=== PATIENT | female | born 1940 | race Caucasian/White ===

== ENCOUNTER 2017-11-03 08:17 | Outpatient (CLI) | payer MEDICARE, OTHER ==
--- NOTE | 2017-11-03 11:18 | PET ---
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 Exam requested for initial st aging. Patient had left eye surgery in September 2017. TECHNIQUE: PET scanning with CT attenuation correction was performed from the vertex through the proximal thighs following the intravenous administration of 13.2 mCi F18-FDG in the left hand. Imaging of the body w as performed after an uptake interval of 48 minutes and the head/neck performed after an uptake inter constance of 64 minutes. COMPARISON: None. FINDINGS: No hypermetabolic activity is seen in the orbits on either side. No jeremy hypermetabolism is noted in the neck, mediastinum, hilar regions, left axilla, abdominopelvic, or inguinal lymph nodes. There is a hypermetabolic 1.2 cm right axillary lymph node with a QSUV of 2.5. No hypermetabolic pulmonary nodules, liver, adrenal, or skeletal lesions are seen. There is physiologic activity in the GI and tracts, and the brain. CT scan used for attenuation correction demonstrates no evidence of pleural effusions or ascites. The re are left-sided renal calculi and a 7.0 mm left UPJ calculus with hydronephrosis. There is sigmoid diverticulosis. There is a tiny, 3.0 mm, calculus in the left distal ureter close to the UVJ. IMPRESSION: 1. Hypermetabolic right axillary lymph node is a suspicious finding for viable lymphoma. 2. Obstructing 7.0 mm left UPJ calculus, left renal calculi, and a 3.0 mm left distal ureteric calcu tia. POS: [facility]
== END 2017-11-03 08:18 | disposition home or self-care (01) ==
LOC: PET 08:17
PROVIDERS: ATTEND Radiology Radiation Oncology
DX: C82.19 Follicular lymphoma grade II, extranodal and solid organ sites (principal); N20.2 Calculus of kidney with calculus of ureter
CPT/HCPCS: 78815; A9552

== ENCOUNTER → 2017-11-28 | Day surgery (SDC) | payer MEDICARE, OTHER ==
[~2017-11-28] MED LIST: Lidocaine 1% PF 5 ML VIAL ONE; Sodium Bicarbonate 2.5 MEQ/5 ML VIAL ONE
--- NOTE | 2017-11-28 12:05 | ULT ---
SOFT TISSUE ULTRASOUND RIGHT AXILLARY ULTRASOUND: CLINICAL HISTORY: Hypermetabolic node of right axilla on preceding PET scan. History of left orbital follicular lympho ma. FINDINGS: There is an abnormal hypoechoic somewhat spiculated soft tissue mass of the right axillary region wit h scant internal flow by Doppler assessment. The mass measures approximately 11 mm in maximum diamet er. This does correspond to the region of hypermetabolic node on preceding PETCT. The patient is sc heduled for subsequent ultrasound-guided biopsy. IMPRESSION: Hypoechoic, spiculated mass of the right axilla. POS: [facility]
--- NOTE | 2017-11-28 12:11 | ULT ---
ULTRASOUND GUIDED BIPSY OF RIGHT AXILLARY NODE: CLINICAL HISTORY: Follicular lymphoma. Hypermetabolic node of the right axilla demonstrated on preceding CT exam. The patient presents at the request of ordering physician, Dr. Kaden Gonzales, for biopsy of the hyperme tabolic right axillary node. PROCEDURE: Informed consent was obtained. The patient was escorted to the procedural suite and placed in the [place] position. The right axillary node of interest was demonstrated on sonographic imaging. The rig ht axilla was then prepped and draped in a standard sterile fashion. Topical anesthesia with buffere d 1% Lidocaine was achieved. A small skin incision was made through which an 18-gauge biopsy needle was advanced to the leading edge of the right axillary node of interest. Subsequently, 3 separate co re specimens were acquired. These were submitted to the pathologist attending the case, Dr. Bar Eddy, who deemed the specimen adequate for interpretation, stating lymph cells were present. The ex am was subsequently terminated. All devices were removed from the patient. The patient tolerated th e procedure well without evidence of complication. The patient was discharged in stable condition. IMPRESSION: Technically successful-guided biopsy of the right axillary lymph node. POS: [facility]
== END ==
LOC: ULT 09:40
PROVIDERS: ATTEND Radiology Radiation Oncology
PROC: 07B53ZX Excision of Right Axillary Lymphatic, Percutaneous Approach, Diagnostic (ICD-10-PCS; principal; 2017-11-28)
DX: C82.19 Follicular lymphoma grade II, extranodal and solid organ sites (principal); E03.9 Hypothyroidism, unspecified; I10 Essential (primary) hypertension; E78.00 Pure hypercholesterolemia, unspecified; G43.909 Migraine, unspecified, not intractable, without status migrainosus; Z79.899 Other long term (current) drug therapy
CPT/HCPCS: 38505; 76999; 88184; 88305; 88333; 88334; 88341; 88342; J2001

== ENCOUNTER 2018-06-18 09:49 | Outpatient (CLI) | payer MEDICARE, OTHER ==
--- NOTE | 2018-06-18 15:11 | PET ---
RADIONUCLIDE PET SCAN WITH CT ATTENUATION CORRECTION: Date: 06/18/18 HISTORY: C82.18. Lymphoma. Restaging. COMPARISON: 11/03/17. FINDINGS: Physiologic uptake of radiotracer is present throughout the enteric system and along each urinary tra ct. At the right axilla, the previously hypermetabolic lymph node is no longer enlarged and shows no hype rmetabolic activity. No new abnormal areas of radiotracer uptake are apparent. The nondiagnostic CT attenuation correction images again show left renal calculi, left hydronephrosis , and a calcification at the left ureteropelvic junction. IMPRESSION: 1. Interval resolution of the right axillar lymph node abnormality. No hypermetabolic activity. No n ew abnormalities. 2. Left renal calculi and partially obstructing left UPJ calcification are unchanged in appearance. POS: [facility]
== END 2018-06-18 09:50 | disposition home or self-care (01) ==
LOC: PET 09:49
PROVIDERS: ATTEND Radiology Radiation Oncology
DX: C82.18 Follicular lymphoma grade II, lymph nodes of multiple sites (principal); N20.0 Calculus of kidney; N28.89 Other specified disorders of kidney and ureter
CPT/HCPCS: 78815; A9552

== ENCOUNTER 2019-08-09 07:25 | Outpatient (CLI) | payer MEDICARE, OTHER ==
[2019-08-09 12:32] LABS: #Eosinphils 0.3 thou/uL (0.0-0.7); #Lymphocytes 1.9 thou/uL (1.20-3.40); #Monocytes 0.9 thou/uL (0.11-0.59); #Neutrophils 4.2 thou/uL (1.40-6.50); %Basophils 0.5 % (0.0-1.0); %Eosinophils 3.6 % (0.0-10.0); %Lymphocytes 26.3 % (21.0-51.0); %Monocytes 12.2 % (0.0-10.0); %Neutrophils 57.5 % (42.0-75.0); Hemoglobin 13.1 g/dL (12.0-16.0); Mean Corpuscular HGB CONC 33.7 g/dL (32.0-36.0); Mean Corpuscular Hemoglobin 29.6 pg (27.0-31.0); Mean Corpuscular Volume 87.9 fL (78.0-98.0); Mean Platelet Volume 9.5 fL (7.4-10.4); Platelet Count 160 thou/uL (130-400); RBC Distribution Width 13.5 % (11.5-14.5); Red Blood Cell (RBC) Count 4.44 mill/uL (4.20-5.40); White Blood Cell (WBC) Count 7.4 thou/uL (4.8-10.8)
[2019-08-09 12:51] LABS: Anion Gap 12 mmol/L (10-20); BUN (Urea Nitrogen) 38 mg/dL (9.8-20.1); Calc. Creatinine Clearance 0 mL/min (70-130); Calcium 10.2 mg/dL (7.8-10.44); Carbon Dioxide 25 mmol/L (23-31); Chloride 106 mmol/L (98-107); Estimated GFR-MDRD 68; Glucose 98 mg/dL (83-110); Potassium 4.3 mmol/L (3.5-5.1); Sodium 139 mmol/L (136-145)
--- NOTE | 2019-08-09 13:14 | RAD ---
TWO VIEW CHEST: HISTORY: Preop. FINDINGS: Lungs appear clear of infiltrate. Heart size upper normal. Vasculature normal. Osseous structures unremarkable. IMPRESSION: No acute finding. POS: [facility]
== END 2019-08-09 07:26 | disposition home or self-care (01) ==
LOC: LABBT 07:25
PROVIDERS: ATTEND Specialist
DX: Z01.818 Encounter for other preprocedural examination (principal); C50.919 Malignant neoplasm of unspecified site of unspecified female breast
CPT/HCPCS: 71046; 80048; 85025; 93005; 93010

== ENCOUNTER 2019-08-12 07:13 | Day surgery (SDC) | payer MEDICARE, OTHER ==
[2019-08-09 11:40] VITALS: BMI 27.0
[2019-08-12] MEDS ORDERED: Fentanyl 100 MCG/2 ML VIAL ONE (10:43)
[2019-08-12] MEDS ORDERED: Ketorolac Tromethamine 30 MG/ML VIAL ONE ×2 (10:48→11:07)
[2019-08-12] MEDS ORDERED: Lidocaine 1% w/Epinephrine 1:100K 20 ML VIAL ONE (10:51)
[2019-08-12] MEDS ORDERED: Bupivacaine 0.25% HCL 30 ML VIAL ONE (10:51)
[2019-08-12] MEDS ORDERED: Isosulfan Blue 50 MG/5 ML VIAL ONE (10:51)
--- NOTE | 2019-08-12 10:56 | NM ---
EXAM: NM Lymphoscintigraphy PROVIDED CLINICAL HISTORY: Left breast cancer. Lymphoscintigraphy was requested prior to left breast lumpectomy. COMPARISON: Left breast ultrasound and mammogram on 07/15/2019 FINDINGS: 402 uCi technetium 99m sulfur colloid was administered intradermally and subcutaneously in 4 separate aliquots in a left periareolar location. After 2 hours of imaging, no focal abnormal area of increased uptake of radiotracer is seen within the left axilla to correspond to a sentinel lymph node . There is a subtle focus of suggested increased uptake noted in the left axillary region on 1 hour image, but this does not increase in intensity on the 2 hour image and is less well-visualized on the [address] Conroy requested that the patient be transported to the operating room for surgery at this time, and no additional imaging was performed. IMPRESSION: No definitive increased uptake of radiotracer is seen to suggest evidence of a sentinel lymph node ba sed on provided images. Dr. Conroy requested that the patient be transported to the operating room, and no additional imagin g was performed.
[2019-08-12] MEDS ORDERED: Glycopyrrolate 0.2 MG/ML 5 ML SYRINGE ONE (11:07)
[2019-08-12] MEDS ORDERED: Lidocaine 1% PF 5 ML VIAL ONE (11:07)
[2019-08-12] MEDS ORDERED: Succinylcholine Chloride 20 MG/ML 10 ml SYRINGE FS ONE (11:07)
[2019-08-12] MEDS ORDERED: Ondansetron PF 4 MG/2 ML Vial ONE (11:07)
[2019-08-12] MEDS ORDERED: Dexamethasone 20 MG/5 ML VIAL ONE (11:07)
[2019-08-12] MEDS ORDERED: PROPOFOL 200 MG/20 ML VIAL ONE (11:07)
[2019-08-12] MEDS ORDERED: EPHEDRINE 25 MG/5 ML SYRINGE ONE (11:07)
--- NOTE | 2019-08-12 21:32 | OP ---
DATE OF PROCEDURE: 08/12/2019 PREOPERATIVE DIAGNOSIS: Left breast invasive lobular carcinoma. POSTOPERATIVE DIAGNOSIS: Left breast invasive lobular carcinoma. PROCEDURES PERFORMED: Ultrasound-guided needle localization, left breast lumpectomy, and left axillary sentinel lymph node biopsy. ANESTHESIA: General endotracheal. INDICATIONS: The patient is an 79-year-old white female. She is diagnosed with a 2 cm invasive lobular carcinoma of the upper outer quadrant of the left breast. She is taken to the operating room at this time for lumpectomy and sentinel lymph node biopsy. Preoperative lymphoscintigraphy was performed, which revealed no definite sentinel lymph node within the axilla. DESCRIPTION OF OPERATION: Informed consent was obtained, the patient was taken to the operating room, where general endotracheal anesthesia was obtained with the patient in supine position. I infiltrated 3 mL of Lymphazurin in the subdermal periareolar tissue of the left breast and massaged the breast for about 5 minutes. The breast was then prepped with ChloraPrep and draped in sterile fashion. The location of the malignancy was mapped in the upper outer quadrant of the left breast in a grid fashion on the skin using ultrasound guidance. I then passed a localizing needle in a [id number] fashion through the malignancy. Attention was then turned to the axilla. A transverse low axillary incision was created and dissection was carried through skin and subcutaneous tissue and through the superficial axillary fascia. Neoprobe was utilized to identify areas of maximum radio intensity. I identified two specific areas of radio intensity. These were relatively mild compared to typical radioactive lymph nodes; however, there were substantially higher than surrounding tissue. The first of these was what appeared to be a dominant sentinel node as it contained blue dye as well. The three sentinel lymph nodes were each identified, dissected circumferentially, and removed after ligating all investing lymphatics with 3-0 silk ties. These were submitted to Pathology for permanent evaluation. Meticulous hemostasis was obtained within the axilla. The wound was then closed in layers with 3-0 and 4-0 Monocryl. Attention was then turned to the left breast. A transverse incision was created based on the localizing needle entry site. Dissection was carried through skin and subcutaneous tissue. Flaps were raised superiorly and inferiorly. I then dissected behind the localizing needle down to the pectoral fascia and dissected the lesion off the pectoral fascia in a [id number] fashion. Care was taken to try to maintain appropriate margins during the removal. The specimen was removed intact. I assessed the specimen with a specimen sonography, it appeared that the anterior margin might be close. I therefore obtained a separate anterior margin. The tissue in this area was relatively friable. It was hard to orient the margin in a standard fashion. I therefore submitted this without orientation, suspecting that this would be a negative margin. The initially resected specimen was tagged with suture for orientation and submitted to Pathology. A specimen mammography was also obtained on the lesion demonstrating a clip within the lesion. The wound was then closed in layers with 3-0 and 4-0 Monocryl. Additional local anesthetic was infiltrated during the course of closure. Dermabond was placed externally over both incisions. There were no complications. The patient tolerated the procedure well and was taken to recovery room in stable condition. Job ID: [id number]
== END 2019-08-12 15:15 | disposition home or self-care (01) ==
LOC: SDC 07:13
PROVIDERS: ATTEND Specialist
PROC: 0HBU0ZZ Excision of Left Breast, Open Approach (ICD-10-PCS; principal; 2019-08-12)
PROC: 07B60ZX Excision of Left Axillary Lymphatic, Open Approach, Diagnostic (ICD-10-PCS; 2019-08-12)
DX: C50.812 Malignant neoplasm of overlapping sites of left female breast (principal); C77.3 Secondary and unspecified malignant neoplasm of axilla and upper limb lymph nodes; I10 Essential (primary) hypertension; E78.00 Pure hypercholesterolemia, unspecified; Z17.0 Estrogen receptor positive status [ER+]; Z79.82 Long term (current) use of aspirin; Z79.899 Other long term (current) drug therapy
CPT/HCPCS: 19301; 38525; 38900; 76098; 78195; A9541; Q9968; 88305; 88307; 88342; J0690; J1100; J1885; J2001; J2405; J2704; J3010; S0020

== ENCOUNTER 2020-03-20 19:05 | Inpatient (IN) | payer MEDICARE, OTHER ==
[2020-03-20] MEDS ORDERED: Atropine Sulfate 1 mg/10 ml Syringe ONE ×2 (19:56→20:27)
[2020-03-20 20:19] LABS: #Eosinphils 0.3 thou/uL (0.0-0.7); #Lymphocytes 1.7 thou/uL (1.20-3.40); #Monocytes 0.9 thou/uL (0.11-0.59); #Neutrophils 4.5 thou/uL (1.40-6.50); %Basophils 0.6 % (0.0-1.0); %Eosinophils 3.7 % (0.0-10.0); %Monocytes 12.2 % (0.0-10.0); %Neutrophils 60.5 % (42.0-75.0); Hemoglobin 12.6 g/dL (12.0-16.0); Mean Corpuscular HGB CONC 34.3 g/dL (32.0-36.0); Mean Corpuscular Hemoglobin 30.8 pg (27.0-31.0); Mean Corpuscular Volume 89.9 fL (78.0-98.0); Mean Platelet Volume 8.7 fL (7.4-10.4); Platelet Count 167 thou/uL (130-400); RBC Distribution Width 13.4 % (11.5-14.5); Red Blood Cell (RBC) Count 4.09 mill/uL (4.20-5.40); White Blood Cell (WBC) Count 7.4 thou/uL (4.8-10.8)
--- NOTE | 2020-03-20 20:19 | RAD ---
Chest one view HISTORY: Dyspnea. COMPARISON: 08/09/2019. FINDINGS: Cardiac silhouette is magnified by projection. Pulmonary vasculature is unremarkable. Mediastinum is midline with aortic calcification. No lobar consolidation or evidence of pneumothorax. Old healed right second rib lateral fracture. Postoperative changes right shoulder. Calcific tendinos is left shoulder. IMPRESSION : No active cardiopulmonary abnormalities are demonstrated.
[2020-03-20 21:01] LABS: ALT (SGPT) 194 U/L (8-55); AST (SGOT) 105 U/L (5-34); Albumin 4.1 g/dL (3.4-4.8); Alkaline Phosphatase 110 U/L (40-110); Anion Gap 17 mmol/L (10-20); BUN (Urea Nitrogen) 50 mg/dL (9.8-20.1); Bilirubin, Total 0.3 mg/dL (0.2-1.2); Calc. Creatinine Clearance 0 mL/min (70-130); Calcium 10.2 mg/dL (7.8-10.44); Carbon Dioxide 23 mmol/L (23-31); Chloride 103 mmol/L (98-107); Estimated GFR-MDRD 39; Globulin 2.9 g/dL (2.4-3.5); Glucose 114 mg/dL (83-110); Potassium 4.9 mmol/L (3.5-5.1); Sodium 138 mmol/L (136-145)
[2020-03-20] MEDS ORDERED: DOPamine 400 MG/D5W 250 ML 0 ML ONE (21:20)
[2020-03-20] MEDS ORDERED: DOBUTamine 500 mg/250 ml 250 ML ONE (21:23)
[2020-03-20 23:52] LABS: Troponin I 0.014 ng/mL (< 0.028)
[2020-03-21] MEDS ORDERED: DOPamine 400 MG/D5W 250 ML 250 ML ONE (01:21)
[2020-03-21] MEDS ORDERED: Sodium Chloride 0.9% 1,000 ML IV SCH (01:45)
--- NOTE | 2020-03-21 02:05 | CON ---
DATE OF CONSULTATION: INDICATION FOR ADMISSION: An 80-year-old female with symptomatic bradycardia. HISTORY OF PRESENT ILLNESS: This is a very pleasant 80-year-old female, who has been followed by Dr. Munoz in the past. She had been having some problems with not feeling well, fatigue, and shortness of breath. She had a monitor placed recently in the office and was to present within the next week or two with results of the monitor. She presented to the emergency room today after she became more short of breath and lightheaded. She said she was unable to even walk her dog. She could not walk across the parking lot without being severely fatigued. She had some dizziness. She has not had any syncopal episodes. On arrival in the emergency room, the patient was noted to have a junctional heart rate with a heart rate in the 30s. Since being in the emergency room, her heart rate has fluctuated as much as 50s to 60s. She was placed on dobutamine instead of dopamine. The emergency room called me earlier and I suggest she be placed on dopamine to see if we could increase the heart rate. This medicine will now be changed over from dobutamine to dopamine. Otherwise, she has had no chest pain. She denies any previous cardiac history except for the not feeling well. No shortness of breath. PAST MEDICAL HISTORY: Significant for left knee surgery for meniscus tear. She has had a left eye lymphoma removal. She has had history of fibroids and had a hysterectomy. She has had breast cancer with a lumpectomy in August 2019, bilateral cataract surgery, history of nephrolithiasis. SOCIAL HISTORY: She is a . She has 2 children. No heart disease. She has no tobacco abuse. She has occasional margaritas. She is retired. She does volunteering. MEDICATIONS: Prior to admission included: 1. Atenolol 50 mg a day. 2. Levothyroxine 25 mcg a day. 3. Lisinopril 20 mg a day. 4. Lipitor 10 mg a day. 5. Imitrex p.r.n. as needed. 6. Anastrozole 1 mg daily. 7. Multivitamins. 8. Calcium. 9. Turmeric. 10. Vitamin C and vitamin D3. 11. . FAMILY HISTORY: She had 5 uncles with coronary artery disease. ALLERGIES: NONE. REVIEW OF SYSTEMS: A 12-point review of systems is unremarkable except what is noted in the history of present illness. PHYSICAL EXAMINATION: VITAL SIGNS: Heart rates in 30s to 50s. Blood pressure is 89/37. HEENT: Shows the head to be normocephalic and atraumatic. NECK: Carotid pulses are present. There were no bruits. CHEST: Clear to auscultation without rales, rhonchi, or wheezing. CARDIOVASCULAR: Reveals an irregular rhythm at this time. She is bradycardic. There were no gross murmurs noted. ABDOMEN: Soft and nontender. Positive bowel sounds are present. EXTREMITIES: Show no clubbing, cyanosis, or edema. Pedal pulses are present but somewhat difficult to palpate. NEUROLOGICAL: She appears to be actually fully intact at this time. She mainly complains of being fatigued as well as some shortness of breath when she tries to do any activity, but otherwise seems to be doing quite well. EKG shows a junctional rhythm with a heart rate in the 30s. IMPRESSION: Symptomatic bradycardia with junctional rhythm in the 30s. She has been on atenolol, but this would not be enough to cause this degree of bradycardia. We will hold the beta blockers at this time. We will continue on her other medications. We will start on dopamine to increase the heart rate and will advise her to undergo pacemaker insertion. I have already spoken to her about this. I have explained the procedure and the risks to include bleeding, infection, possible pneumothorax, hemothorax, pericardial tamponade. She understands and agrees to proceed with pacemaker insertion, which we plan for 7 o'clock tomorrow morning unless she becomes urgent later tonight. At this time, she is relatively stable and has minimal symptoms unless she moves about. Job ID: [id number]
[2020-03-21 02:25] LABS: #Eosinphils 0.1 thou/uL (0.0-0.7); #Lymphocytes 1.2 thou/uL (1.20-3.40); #Monocytes 0.7 thou/uL (0.11-0.59); #Neutrophils 5.1 thou/uL (1.40-6.50); %Basophils 0.5 % (0.0-1.0); %Eosinophils 1.4 % (0.0-10.0); %Lymphocytes 17.2 % (21.0-51.0); %Monocytes 9.1 % (0.0-10.0); %Neutrophils 71.8 % (42.0-75.0); Hemoglobin 12.7 g/dL (12.0-16.0); Mean Corpuscular HGB CONC 33.6 g/dL (32.0-36.0); Mean Corpuscular Volume 89.4 fL (78.0-98.0); Mean Platelet Volume 8.5 fL (7.4-10.4); Platelet Count 148 thou/uL (130-400); RBC Distribution Width 13.4 % (11.5-14.5); Red Blood Cell (RBC) Count 4.22 mill/uL (4.20-5.40); White Blood Cell (WBC) Count 7.1 thou/uL (4.8-10.8)
[2020-03-21] MEDS ORDERED: DOPamine 400 MG/D5W 250 ML 250 ML IVPB SCH ×2 (02:30→02:45)
[2020-03-21 02:45] VITALS: BMI 28.3
[2020-03-21 03:06] LABS: ALT (SGPT) 172 U/L (8-55); AST (SGOT) 67 U/L (5-34); Albumin 3.9 g/dL (3.4-4.8); Alkaline Phosphatase 102 U/L (40-110); Anion Gap 16 mmol/L (10-20); BUN (Urea Nitrogen) 49 mg/dL (9.8-20.1); Bilirubin, Total 0.3 mg/dL (0.2-1.2); Calc. Creatinine Clearance 38 mL/min (70-130); Calcium 10.1 mg/dL (7.8-10.44); Carbon Dioxide 24 mmol/L (23-31); Chloride 103 mmol/L (98-107); Estimated GFR-MDRD 42; Globulin 3.1 g/dL (2.4-3.5); Glucose 121 mg/dL (83-110); Potassium 4.6 mmol/L (3.5-5.1); Sodium 138 mmol/L (136-145)
[2020-03-21 03:52] LABS: Troponin I 0.012 ng/mL (< 0.028)
--- NOTE | 2020-03-21 05:21 | HP ---
REASON FOR ADMISSION: Dizziness and shortness of breath. HISTORY OF PRESENT ILLNESS: This is an 80-year-old female patient, who is presenting with shortness of breath. History going back to two days before her presentation. She has been short of breath on moderate exertion. While walking, she became short of breath also, has been feeling lightheaded for the past month that can occur while sitting, not affected by standing up. She presented today. She felt that since she is consistently short of breath, she PAST MEDICAL HISTORY: 1. Breast cancer, status post lumpectomy, status post radiation therapy. 2. High blood pressure. 3. High cholesterol. SOCIAL HISTORY: She does not smoke, does not drink alcohol. FAMILY HISTORY: Positive for heart disease. REVIEW OF SYSTEMS: All systems reviewed except the above mentioned, found to be negative. PHYSICAL EXAMINATION: GENERAL: She is awake, alert, oriented, does not appear in distress. VITAL SIGNS: Her blood pressure is 130/43, heart rate of 72, saturating 98% on room air. HEENT: Head is nontraumatic, normocephalic. Pupils equal, reactive. Extraocular movements are intact. Nonicteric sclerae. Well-injected conjunctivae. Oral mucosa normal. Nasal mucosa normal. NECK: Supple. No adenopathy. No murmur. Thyroid is not palpable. Trachea is midline. No supraclavicular adenopathy. HEART: S1, S2 regular. No murmur. No gallops. No friction rubs noted. No displacement of PMI. LUNGS: Clear to auscultation bilaterally. No wheezes or rhonchi. No crackles. ABDOMEN: Bowel sounds are positive. Nontender abdomen. No hepatosplenomegaly. EXTREMITIES: No lower extremity edema. No cyanosis. NEURO EXAM: Cranial nerves II through XII within normal limits. Normal motor function. Normal sensory function. Normal reflexes. LABORATORY DATA: Blood work shows WBC of 7.4, hemoglobin 12.6, platelets of 167. Sodium 138, potassium 4.9, bicarb 23, BUN 50, creatinine 1.3, previous creatinine 0.81, AST 105, ALT 194. Troponin 0.01, repeat 0.014. EKG showed initially a junctional rhythm. ASSESSMENT AND PLAN: This is an 80-year-old female patient who has been having exertional dyspnea for the past two days, but has been lightheaded for the past couple of months. Upon her arrival to the ER, she was found to have a junctional rhythm at a heart rate of 32 beats per minute. She did receive atropine, then was started on dobutamine drip. The ER nurse practitioner did call Dr. Parra, who recommended admission to [facility] on dobutamine drip. She will see the patient in the morning for possible pacemaker placement. Cardiac: The patient will be admitted to [facility]. She will be on IV dobutamine drip. We will continue cycling cardiac enzymes. The patient is on atenolol. This medication will be stopped. We will follow Cardiology recommendation in regards of the need for a pacemaker. For deep vein thrombosis prophylaxis: She will be on heparin subcutaneously and sequential compression devices. Renal system, electrolytes: The patient does appear to have a worsening of her creatinine. She will be on gentle IV fluid hydration. Recheck her labs in the morning. The patient does have slightly increased LFTs. We will recheck them in the morning. I did discuss with her the code status. She wishes to be full code. Job ID: [id number]
[2020-03-21] MEDS ORDERED: Gentamicin 80 MG/2 ML VIAL ONE (06:38)
[2020-03-21] MEDS ORDERED: CEFAZOLIN 1 GM VIAL ONE (06:38)
[2020-03-21] MEDS ORDERED: Heparin 0 ML ONE (06:38)
[2020-03-21] MEDS ORDERED: Midazolam HCl 2 mg/2 ml Vial ONE (07:08)
[2020-03-21] MEDS ORDERED: Heparin 5,000 UNITS/ML VIAL SC SCH (09:00)
[2020-03-21] MEDS ORDERED: HYDROcodone/Acetaminophen 5/325 mg Tablet PO PRN (09:36)
--- NOTE | 2020-03-21 10:58 | RAD ---
PORTABLE CHEST 1 VIEW: Date: 03/21/2020 Time: 0948 hours HISTORY: Post cardiac device placement. FINDINGS/IMPRESSION: There has been interval placement of a left-sided pacemaker device with leads in the right atrium and the right ventricle since the previous day's exam. No pneumothoraces are seen. Remainder of exam is otherwise stable. POS: [facility]
[2020-03-21 14:26] LABS: SARS-CoV-2 MS2 Positive; SARS-CoV-2 N Gene Negative; SARS-CoV-2 S Gene Negative; SARS-CoV-2 by NAA Not Detected (NotDetected); SARS-CoV-2 orf1ab Negative
[2020-03-21 15:13] VITALS: TEMP 97
[2020-03-21 15:17] VITALS: BP 133/72
--- NOTE | 2020-03-21 19:04 | PDOC.DS.DS ---
Provider - Provider Date of Admission: 03/20/20 21:58 Date of Discharge: 03/21/20 Admitting Provider: Esteban Last MD Consultations: Cardiology Primary Care Physician: Bar Conroy MD Course - Hospital Course Hospital Course: Brief HPI: This is an 80-year-old female who presented to the emergency room with shortness of breath for the past 2 days. She also reported feeling lightheaded especially while sitting. Upon arrival to the emergency room she was found to have a junctional rhythm with a heart rate of 32. She received atropine and was started on a dobutamine drip. She was admitted to the [facility] with cardiology consultation. Patient states that she had been taking atenolol for years for high blood pressure. She denied any history of atrial fibrillation. HOSPITAL COURSE: Junctional bradycardia: Patient was started on a dopamine drip and admitted to the [facility]. She underwent pacemaker placement on 03/21. After her pacemaker insertion she was taken off all drips. Her heart rate was 72. She denied any chest pain, palpitations, dizziness or lightheadedness. She was discharged with cefdinir for 1 week to prevent pacemaker infection. She will follow up with Dr. Parra in 7 to 10 days and then follow-up with Dr. Asher in 3 to 4 weeks. Her atenolol was discontinued on discharge. Acute Kidney Injury: Patient's creatinine was 1.32 which improved to 1.23 with IV fluids. The patient denied any nausea or vomiting. She expressed interest in going home. She was advised to discontinue her lisinopril and get a repeat BMP in a week. Hypertension: Patient was taking atenolol and lisinopril at home. These were discontinued and she was switched to amlodipine 5 mg daily which she can take as needed for blood pressures greater than 140. Pertinent Studies: Chest x ray 03/20: normal Chest X ray 03/21: normal Procedures: Pacemaker insertion Resuscitation Status: 03/21/20 01:27 Resuscitation Status Routine Resuscitation Status: FULL: Full Resuscitation - Labs Lab Results: 03/21/20 02:17 03/21/20 02:17 Abnormal Lab Results - Last 48 hrs 03/20/20 20:03: BUN 50 H, Creatinine 1.31 H, AST 105 H, ALT 194 H 03/20/20 20:03: RBC 4.09 L, Monocytes % 12.2 H, Monocytes # 0.9 H 03/21/20 02:17: BUN 49 H, Creatinine 1.23 H, AST 67 H, ALT 172 H 03/21/20 02:17: Lymphocytes % 17.2 L, Monocytes # 0.7 H - Physical Exam Vitals: Vital Signs (12 hours) Temp Pulse BP BP 03/21/20 15:12 97.0 F L 03/21/20 14:29 89 133/72 142/69 H 03/21/20 11:20 99.4 F 03/21/20 08:00 98.0 F Weight Weight 150 lb 1.6 oz Most Recent Monitor Data Heart Rate from ECG 80 NIBP 142/61 NIBP BP-Mean 88 Respiration from ECG 24 SpO2 79 Physical Exam: The patient was seen and examined on the day of discharge. Problem - Discharge Plan Plan of Treatment: Repeat BMP in 1 week to assess kidney function - Time spent with Patient (mins): 35 Plan - Discharge Medications Prescriptions: Cefdinir 300 mg PO Q12HR #14 capsule Amlodipine [Norvasc] 5 mg PO DAILY #30 tab Home Medications: Medication Instructions Recorded Confirmed Type Aspirin [Ecotrin Low Strength] 81 mg PO DAILY 11/27/17 03/21/20 History Atorvastatin Calcium 10 mg PO DAILY 11/27/17 03/21/20 History Calcium Carbonate/Vitamin D3 1 tablet PO DAILY 11/27/17 03/21/20 History [Calcium 600 + Vitamin D] Levothyroxine Sodium 25 mcg PO DAILY 11/27/17 03/21/20 History Methylcellulose [Fiber Therapy] 500 mg PO DAILY 11/27/17 03/21/20 History Multivitamin [Multivitamins] 1 cap PO DAILY 11/27/17 03/21/20 History Tumeric 450 mg PO DAILY 11/27/17 03/21/20 History Ascorbic Acid [Vitamin C] 500 mg PO DAILY 08/09/19 03/21/20 History Cholecalciferol (Vitamin D3) 50 mg PO DAILY 08/09/19 03/21/20 History [Vitamin D3] [place]coe-3 Fatty Acids/Fish Oil 1 cap PO DAILY 08/09/19 03/21/20 History [[place]coe 3 1,000 mg Softgel] SUMAtriptan Succinate [Imitrex] 50 mg PO Q2HR PRN 08/09/19 03/21/20 History Amlodipine [Norvasc] 5 mg PO DAILY #30 tab 03/21/20 Rx Anastrozole 1 mg PO DAILY 03/21/20 03/21/20 History Cefdinir 300 mg PO Q12HR #14 capsule 03/21/20 Rx Furosemide [Lasix] 10 mg PO DAILY 03/21/20 03/21/20 History Allergies: No Known Allergies Allergy (Verified 08/09/19 11:39) - Discharge Instructions Activity:: Activity as Tolerated Nourishment:: Heart Healthy Diet - Follow up Plan Referrals: Cardiac Rehab - [place] [Outside] - 7 Days (Your doctor has ordered outpatient cardiac rehab for you to begin within 1-2 weeks after you go home from the hospital. The location nearest to you is the [facility]. We will call you in 3-5 days to get you scheduled for your evaluation. If you do not receive a call, please reach out to them at [phone] and request an appointment.) Ever Munoz MD [Active] - 3-4 Weeks (Follow up with your primary ca rdiologist as directed) Charito Parra MD [Active] - 10 Days (Call to make an appt for Pacemaker check per Dr Parra' instructions) Disposition: HOME Quality - Care Measures CORE MEASURES:: N/A
[2020-03-21] MEDS ORDERED: Atorvastatin Calcium 10 MG TAB PO SCH (21:00)
[2020-03-22] MEDS ORDERED: Levothyroxine Sodium 25 MCG TAB PO SCH (06:00)
[2020-03-22] MEDS ORDERED: Citrucel 500 MG TAB PO SCH (09:00)
[2020-03-22] MEDS ORDERED: Furosemide 20 MG TAB PO SCH (09:00)
[2020-03-22] MEDS ORDERED: Fish Oil 1,000 MG CAP PO SCH (09:00)
[2020-03-22] MEDS ORDERED: Aspirin 81 mg Enteric Coated Tablet PO SCH (09:00)
[2020-03-22] MEDS ORDERED: Multivit, Therapeutic 1 TAB PO SCH (09:00)
[2020-03-22] MEDS ORDERED: Anastrozole 1 MG TAB PO SCH (09:00)
[2020-03-22] MEDS ORDERED: Cholecalciferol 1,000 UNITS (25 MCG) TAB PO SCH (09:00)
--- NOTE | 2020-03-23 09:08 | CCLSPC ---
INDICATION FOR PROCEDURE: An 80-year-old female with symptomatic bradycardia with heart rates in the 30s with junctional rhythm, was advised to undergo dual chamber pacemaker insertion. She was taken to cardiac laborer where we performed the procedure today without difficulties or complications. She was implanted with a dual chamber pacemaker from [employer] and Yvonne S dual-chamber pacemaker MRI compatible. Two screw-in leads were placed, 1 in the atrium and 1 in the ventricle. Pacemaker was set with the upper rate of 120, the lower rate was set at 60. There were no difficulties or complications encountered. The patient was given 1 mg of IV versed for conscious sedation. Throughout the procedure was monitored by an independent observer present for heart rate, blood pressure, and O2 saturation. Total sedation time was 38 minutes. Job ID: [id number]
== END 2020-03-21 15:47 | disposition home or self-care (01) | DRG 243 ==
LOC: ERS 19:05 → IMCU/EMU 21:58
PROVIDERS: ADMIT Internal Medicine; ATTEND Internal Medicine
PROC: 0JH606Z Insertion of Pacemaker, Dual Chamber into Chest Subcutaneous Tissue and Fascia, Open Approach (ICD-10-PCS; principal; 2020-03-21)
PROC: 02HK3JZ Insertion of Pacemaker Lead into Right Ventricle, Percutaneous Approach (ICD-10-PCS; 2020-03-21)
PROC: 02H63JZ Insertion of Pacemaker Lead into Right Atrium, Percutaneous Approach (ICD-10-PCS; 2020-03-21)
DX: R00.1 Bradycardia, unspecified (principal); N17.9 Acute kidney failure, unspecified; E78.00 Pure hypercholesterolemia, unspecified; R79.89 Other specified abnormal findings of blood chemistry; I10 Essential (primary) hypertension; I44.2 Atrioventricular block, complete; Z20.828 Contact with and (suspected) exposure to other viral communicable diseases; Z92.3 Personal history of irradiation; Z98.42 Cataract extraction status, left eye; Z98.41 Cataract extraction status, right eye; Z90.710 Acquired absence of both cervix and uterus
CPT/HCPCS: 33208; 36415; 71045; 80053; 84484; 85025; 87635; 93005; 93010; 93798; 96365; 96366; 96375; 96376; 99152; 99153; C1785; C1898; J0461; J0690; J1250; J1265; J1580; J1644; J2250; U0003

== ENCOUNTER 2022-04-05 10:42 | Emergency (ER) | payer MEDICARE, OTHER ==
[2022-04-05 11:20] LABS: #Eosinphils 0.3 thou/uL (0.0-0.7); #Lymphocytes 1.6 thou/uL (1.20-3.40); #Monocytes 0.7 thou/uL (0.11-0.59); #Neutrophils 4.1 thou/uL (1.40-6.50); %Basophils 0.5 % (0.0-1.0); %Lymphocytes 23.3 % (21.0-51.0); %Monocytes 10.2 % (0.0-10.0); Hemoglobin 13.3 g/dL (12.0-16.0); Mean Corpuscular HGB CONC 32.3 g/dL (32.0-36.0); Mean Corpuscular Hemoglobin 29.6 pg (27.0-31.0); Mean Corpuscular Volume 91.6 fl (78.0-98.0); Mean Platelet Volume 8.8 fL (7.4-10.4); Platelet Count 163 10x3/uL (130-400); RBC Distribution Width 13.4 % (11.5-14.5); White Blood Cell (WBC) Count 6.7 10x3/uL (4.8-10.8)
[2022-04-05] MEDS ORDERED: Acetaminophen 325 MG TAB ONE (11:23)
[2022-04-05 11:57] LABS: ALT (SGPT) 13 U/L (8-55); AST (SGOT) 16 U/L (5-34); Albumin 4.3 g/dL (3.4-4.8); Alkaline Phosphatase 95 U/L (40-110); Anion Gap 13 mmol/L (10-20); BUN (Urea Nitrogen) 21 mg/dL (9.8-20.1); Bilirubin, Total 0.5 mg/dL (0.2-1.2); Calc. Creatinine Clearance 0 mL/min (70-130); Calcium 10.2 mg/dL (7.8-10.44); Carbon Dioxide 29 mmol/L (23-31); Chloride 101 mmol/L (98-107); Estimated GFR 70; Globulin 3.2 g/dL (2.4-3.5); Glucose 113 mg/dL (83-110); Lipase 35 U/L (8-78); Potassium 3.7 mmol/L (3.5-5.1); Protein, Total 7.5 g/dL (5.8-8.1); Sodium 139 mmol/L (136-145)
== END 2022-04-05 13:18 | disposition home or self-care (01) ==
LOC: ERS 10:42
DX: R07.9 Chest pain, unspecified (principal); I10 Essential (primary) hypertension; E78.5 Hyperlipidemia, unspecified
CPT/HCPCS: 36415; 71045; 80053; 83690; 84484; 85025; 93005; 94760

== ENCOUNTER 2025-04-29 13:43 | Emergency (ER) | payer MEDICARE, OTHER ==
[2025-04-29 15:04] LABS: #Basophils 0.05 10x3/uL (0.0-0.2); #Eosinophils 0.28 10x3/uL (0.0-0.7); #Monocytes 0.92 10x3/uL (0.11-0.59); #Neutrophils 5.49 10x3/uL (1.40-6.50); %Basophils 0.6 % (0.0-1.0); %Eosinophils 3.5 % (0.0-10.0); %Lymphocytes 16.2 % (21.0-51.0); %Monocytes 11.4 % (0.0-10.0); %Neutrophils 68.1 % (42.0-75.0); Hematocrit 39.0 % (36.0-47.0); Hemoglobin 12.3 g/dL (12.0-16.0); Mean Corpuscular Hemoglobin 27.3 pg (27.0-31.0); Mean Corpuscular Volume 86.5 fL (78.0-98.0); Platelet Count 180 10x3/uL (130-400); Red Blood Cell (RBC) Count 4.51 mill/uL (4.20-5.40); White Blood Cell (WBC) Count 8.07 10x3/uL (4.8-10.8)
[2025-04-29 15:17] LABS: INR-International Normal Ratio 1.7; PTT 37.4 sec (22.9-36.1); Prothrombin Time 20.5 sec (12.0-14.7)
[2025-04-29 15:18] LABS: D-Dimer Test 0.52 mcg/mL (0.27-0.43)
[2025-04-29 16:49] LABS: ALT (SGPT) 87 U/L (Less than 34); AST (SGOT) 56 U/L (11-34); Albumin 3.6 g/dL (3.1-4.5); Alkaline Phosphatase 93 U/L (40-110); Anion Gap 14 mmol/L (10-20); BUN (Urea Nitrogen) 26 mg/dL (9.8-20.1); Bilirubin, Total 0.4 mg/dL (0.3-1.2); Calc. Creatinine Clearance 0 mL/min (70-130); Calcium 10.2 mg/dL (7.8-10.44); Carbon Dioxide 23 mmol/L (23-31); Chloride 106 mmol/L (98-107); Globulin 2.7 g/dL (2.4-3.5); Glucose 97 mg/dL (83-110); Magnesium 2.1 mg/dL (1.6-2.6); Potassium 4.6 mmol/L (3.5-5.1); Sodium 138 mmol/L (136-145)
[2025-04-29 17:50] LABS: Bacteria/HPF 3+ HPF (None Seen); CAUTI Indications for Culture Pelvic or flank pain; Glucose, Urine (Dipstick) Normal (Negative); Leukocyte 500 Leu/uL (Negative); Protein, Urine (Dipstick) 30 mg/dL (Neg-Trace); RBC/HPF 0-3 HPF (0-3); Specific Gravity, Urine 1.019 (1.002-1.036); WBC/HPF Greater than 50 HPF (0-3)
[2025-04-29 17:53] LABS: Urine Culture Reflex Yes Yes
[2025-04-29] MEDS ORDERED: cefTRIAXone (ROCEPHIN) 1 GM VIAL ONE (17:57)
== END 2025-04-29 20:26 | disposition home or self-care (01) ==
LOC: ERS 13:43
DX: N39.0 Urinary tract infection, site not specified (principal); R29.700 NIHSS score 0; I10 Essential (primary) hypertension; I48.91 Unspecified atrial fibrillation; E78.5 Hyperlipidemia, unspecified; Z79.01 Long term (current) use of anticoagulants; Z79.899 Other long term (current) drug therapy
CPT/HCPCS: 71045; 80053; 81001; 83735; 83880; 84484 ×2; 85025; 85379; 85610; 85730; 87077; 87086; 87186; 93005; 94760; J0696; 36415; 96374

== ENCOUNTER 2025-05-10 10:14 | Outpatient (CLI) | payer MEDICARE, OTHER ==
[2025-05-10 11:32] LABS: #Basophils 0.06 10x3/uL (0.0-0.2); #Eosinophils 0.33 10x3/uL (0.0-0.7); #Monocytes 0.89 10x3/uL (0.11-0.59); #Neutrophils 4.57 10x3/uL (1.40-6.50); %Basophils 0.8 % (0.0-1.0); %Eosinophils 4.7 % (0.0-10.0); %Lymphocytes 17.1 % (21.0-51.0); %Monocytes 12.6 % (0.0-10.0); %Neutrophils 64.5 % (42.0-75.0); Hematocrit 40.8 % (36.0-47.0); Hemoglobin 12.7 g/dL (12.0-16.0); Mean Corpuscular Hemoglobin 27.7 pg (27.0-31.0); Mean Corpuscular Volume 89.1 fL (78.0-98.0); Platelet Count 160 10x3/uL (130-400); Red Blood Cell (RBC) Count 4.58 mill/uL (4.20-5.40); White Blood Cell (WBC) Count 7.08 10x3/uL (4.8-10.8)
[2025-05-10 11:52] LABS: Anion Gap 12 mmol/L (10-20); BUN (Urea Nitrogen) 25 mg/dL (9.8-20.1); Calc. Creatinine Clearance 0 mL/min (70-130); Calcium 10.0 mg/dL (7.8-10.44); Carbon Dioxide 28 mmol/L (23-31); Chloride 105 mmol/L (98-107); Glucose 91 mg/dL (83-110); Potassium 4.4 mmol/L (3.5-5.1); Sodium 141 mmol/L (136-145)
[2025-05-10 14:09] LABS: Free T4 (Free Thyroxine) 1.07 ng/dL (0.70-1.48)
== END 2025-05-10 10:15 | disposition home or self-care (01) ==
LOC: LABBT 10:14
PROVIDERS: ATTEND Internal Medicine Cardiovascular Disease
DX: Z01.812 Encounter for preprocedural laboratory examination (principal); I48.91 Unspecified atrial fibrillation
CPT/HCPCS: 80048; 84439; 84443; 85025

== ENCOUNTER 2025-05-11 06:50 | Day surgery (SDC) | payer MEDICARE, OTHER ==
[2025-05-10 10:39] VITALS: BMI 26.4
[2025-05-11] MEDS ORDERED: PROPOFOL 20 ML ONE (07:10)
[2025-05-11] MEDS ORDERED: Lidocaine 1% PF 5 ML VIAL ONE (09:21)
== END 2025-05-11 10:38 | disposition home or self-care (01) ==
LOC: SDC 06:50
PROVIDERS: ATTEND Internal Medicine Cardiovascular Disease
PROC: 5A2204Z Restoration of Cardiac Rhythm, Single (ICD-10-PCS; principal; 2025-05-11)
DX: I48.0 Paroxysmal atrial fibrillation (principal); I10 Essential (primary) hypertension; I48.92 Unspecified atrial flutter; I35.1 Nonrheumatic aortic (valve) insufficiency; I36.1 Nonrheumatic tricuspid (valve) insufficiency; E03.9 Hypothyroidism, unspecified; Z95.0 Presence of cardiac pacemaker; Z90.710 Acquired absence of both cervix and uterus; Z98.49 Cataract extraction status, unspecified eye; Z79.890 Hormone replacement therapy; Z79.899 Other long term (current) drug therapy; Z98.890 Other specified postprocedural states
CPT/HCPCS: 92960; 93005; J2704; 93010